=== PATIENT | male | born 1995 | race Caucasian/White ===

== ENCOUNTER 2022-10-01 00:36 | Emergency (ER) | payer SELFPAY ==
[~2022-10-01] VITALS: Ht 175.3 cm; Wt 82.0 kg
[2022-10-01] MEDS ORDERED: OXYMETAZOLINE HCL NASAL SPRAY 15ML BOTHNSTRLS SCH (01:15)
[2022-10-01 02:35] LABS: HEMATOCRIT. 30.5 % (42.0-52.0); HEMOGLOBIN. 10.3 g/dL (14.0-18.0); MEAN CORPUSCULAR HEMOGLOBIN 29.8 pg (28.0-32.0); MEAN CORPUSCULAR VOLUME 88.7 fL (80.0-94.0); PLATELET 817 x1000/uL (130-400); RED BLOOD CELL COUNT 3.44 mill/uL (4.7-6.1); RED CELL DISTRIBUTION WIDTH 14.8 % (11.6-14.6)
[2022-10-01 02:46] LABS: INR 1.1; PROTHROMBIN TIME 11.3 sec (9.6-11.0)
[2022-10-01 02:47] LABS: CHLORIDE 106 mEq/L (98-107)
[2022-10-01 04:15] VITALS: BP 125/79
[2022-10-01 08:34] LABS: PLATELET ESTIMATE INCREASED
== END 2022-10-01 04:21 | disposition home or self-care (01) ==
LOC: ER 00:36
DX: R04.0 Epistaxis (principal); Z87.828 Personal history of other (healed) physical injury and trauma; Z98.890 Other specified postprocedural states
CPT/HCPCS: 36415; 80053; 85025; 86850; 86900; 99283